=== PATIENT | female | born 1995 | race Caucasian/White ===

== ENCOUNTER 2018-07-30 10:45 | Inpatient (IN) | payer MEDICAID ==
[2018-07-30] MEDS ORDERED: OXYTOCIN 10 UNIT/ML 1 ML VIAL IM PRN (12:25)
[2018-07-30] MEDS ORDERED: METHYLERGONOVINE 0.2 MG/ML 1 ML AMP IM PRN (12:25)
[2018-07-30] MEDS ORDERED: TERBUTALINE 1 MG/ML VIAL SQ PRN (12:25)
[2018-07-30] MEDS ORDERED: LIDOCAINE 0.5% (PF) 5 MG/ML (50 ML SDV) SQ PRN (12:25)
[2018-07-30] MEDS ORDERED: CARBOPROST TROMETHAMINE 250 MCG/ML 1 ML AMP IM PRN (12:25)
[2018-07-30 12:32] VITALS: BMI 32.9
[2018-07-30] MEDS: OXYTOCIN 20 UNITS/1000 ML NS 1,000 ML IV SCH (12:36)
[2018-07-30] MEDS: LACTATED RINGERS 1,000 ML IV SCH ×2 (12:36→17:13)
--- NOTE | 2018-07-30 12:44 | P.HPOB ---
History of Present Illness H&P Date: 07/30/18 Chief Complaint: Spontaneous rupture of membranes, IUP at 39-4/7 weeks This is a 23-year-old 2 para 0010 at 39-4/7 weeks that presents to labor and delivery with complaints of spontaneous rupture of membranes last night at 2130. Patient states she was having irregular contractions and was unsure to come in. She called the office this morning and presented to labor and delivery positive amnio sure immediately. On initial physical exam she was 2 cm by the RN. Next para patient was receiving routine care by myself. Next On blood work showed a blood type of O+, rubella immune, RPR nonreactive, hepatitis B surface antigen negative, HIV negative, she did pass her 1 hour Glucola screen with a level of 70, group beta strep was negative on 07/07/2018. Review of Systems Constitutional: Denies chills, Denies fatigue, Denies fever Cardiovascular: Reports leg edema Respiratory: Denies cough, Denies dyspnea Gastrointestinal: Denies constipation, Denies diarrhea, Denies nausea, Denies vomiting Genitourinary: Reports Past Medical History Past Medical History: No Reported History History of Any Multi-Drug Resistant Organisms: None Reported Additional Past Surgical History / Comment(s): Jaw surgery 10 years ago for under bite. Past Anesthesia/Blood Transfusion Reactions: No Reported Reaction Past Psychological History: No Psychological Hx Reported Smoking Status: Never smoker Past Alcohol Use History: None Reported Past Drug Use History: None Reported - Past Family History Father Family Medical History: Diabetes Mellitus Medications and Allergies Home Medications Medication Instructions Recorded Confirmed Type No Known Home Medications 07/30/18 07/30/18 History Allergies Allergy/AdvReac Type Severity Reaction Status Date / Time No Known Allergies Allergy Verified 07/30/18 12:20 Exam Osteopathic Statement: *. No significant issues noted on an osteopathic structural exam other than those noted in the History and Physical/Consult. Vital Signs Temp Pulse Resp Pulse Ox 07/30/18 11:35 98.4 F 76 16 100 Intake and Output 07/29/18 07/30/18 07/30/18 22:59 06:59 14:59 Other: Weight 81.647 kg - OBG Physical Exam Abdomen: Gravid and appropriate for gestational age Vulva: both: normal Cervix: 2-3/80/-2 amniotomy performed and clear fluid was obtained suspect forebag rupture prior Anus/Rectum: normal perianal skin Assessment and Plan (1) Term Current Visit: Yes Status: Acute Code(s): Z34.80 - ENCOUNTER FOR SUPRVSN OF NORMAL , UNSP TRIMESTER SNOMED Code(s): 74513441 (2) SROM (spontaneous rupture of membranes) Current Visit: Yes Status: Acute Code(s): LHP5620 - SNOMED Code(s): 902750076 Plan: Will admit to labor and delivery for Pitocin augmentation of labor given length of time since loss of fluid last pm 2129.
[2018-07-30 13:18] LABS: Basophils % (A) 0 %; Eosinophils # (A) 0.1 k/uL (0-0.7); Eosinophils % (A) 1 %; HCT 38.4 % (34.0-46.0); HGB 12.6 gm/dL (11.4-16.0); Lymphocytes # (A) 1.7 k/uL (1.0-4.8); Lymphocytes % (A) 16 %; MCH 32.5 pg (25.0-35.0); MCHC 32.9 g/dL (31.0-37.0); MCV 98.8 fL (80.0-100.0); Mean Platelet Volume 7.9; Monocytes # (A) 0.6 k/uL (0-1.0); Monocytes % (A) 5 %; Neutrophils # (A) 8.1 k/uL (1.3-7.7); Neutrophils % (A) 76 %; Platelet Count 176 k/uL (150-450); RBC 3.88 m/uL (3.80-5.40); RDW 12.8 % (11.5-15.5); WBC 10.6 k/uL (3.8-10.6)
[2018-07-30] MEDS ORDERED: BUTORPHANOL 1 MG/ML 1 ML VIAL IV PRN (14:11)
[2018-07-30] MEDS ORDERED: fentaNYL (PF) 50 MCG/ML 5 ML AMP ONE (16:56)
[2018-07-30] MEDS ORDERED: SODIUM CHLORIDE 0.9% 100 ML BAG ONE (16:56)
[2018-07-30] MEDS ORDERED: ROPIVACAINE 5MG/ML 20ML VIAL ONE (16:56)
[2018-07-30] MEDS ORDERED: CITRIC ACID-SODIUM CITRATE 15 ML CUP PO ONE (17:56)
[2018-07-30] MEDS ORDERED: diphenhydrAMINE 50 MG/ML 1 ML VIAL ONE (18:06)
[2018-07-30] MEDS ORDERED: CHLOROPROCAINE 3% 30 MG/ML 20 ML VIAL ONE (18:06)
[2018-07-30] MEDS ORDERED: MORPHINE SULFATE (PF) 0.3 MG/0.3 ML SYR ONE (18:06)
[2018-07-30] MEDS ORDERED: ePHEDrine SULFATE/0.9% NACL/PF 50 MG/5 ML SYRINGE IV ONE (18:06)
[2018-07-30] MEDS ORDERED: NALBUPHINE 10 MG/ML VIAL (10ML MDV) ONE (18:06)
[2018-07-30] MEDS ORDERED: ceFAZolin 1,000 MG VIAL ONE (18:06)
[2018-07-30] MEDS ORDERED: ONDANSETRON 4 MG/2 ML VIAL ONE (18:06)
[2018-07-30] MEDS ORDERED: KETOROLAC 30 MG/ML 1 ML VIAL ONE (18:06)
[2018-07-30] MEDS ORDERED: DEXAMETHASONE SOD PHOS (MDV) 100 MG/10 ML VIAL ONE (18:06)
--- NOTE | 2018-07-30 18:54 | P.OP ---
Date of Procedure: 07/30/18 Preoperative Diagnosis: IUP at 39-4/7 weeks, nonreassuring heart tones, remote from delivery Postoperative Diagnosis: Same Procedure(s) Performed: Primary low transverse section Anesthesia: epidural Surgeon: Zoe Gallego Home Energy Inspector #1: Poly Chavez Estimated Blood Loss (ml): 400 IV fluids (ml): 1,000 Urine output (ml): 100 Pathology: other (Placenta) Condition: stable Disposition: observation Indications for Procedure: heart tones noted with decelerations down to the 80s for 4 minutes return to baseline given remote from delivery and spontaneous deceleration decision was made to proceed with primary low transverse section. Of note patient had made no cervical global climate change researcher the prior 6 hours despite regular contractions Operative Findings: Normal uterus tubes and ovaries, infant in occiput transverse presentation Description of Procedure: The patient was prepped and draped in the usual fashion after epidural anesthesia was found to be adequate. A Pfannenstiel incision was made and extended of the abdominal cavity without difficulty. The bladder peritoneum was elevated and incised and reflected distally. A 2 cm incision was made in the transverse plane of the lower uterine segment to enter the uterus at which time clear fluid was noted. The incision was extended in both directions using the bandage scissors. The head was encountered within the field and delivered up and through the incision where the nose and mouth were thoroughly suctioned. Remainder of the infant was delivered onto the surgical field where the cord was doubly clamped, cut, and the infant was passed for resuscitative measures with weight and Apgars as noted above. A segment of cord was then doubly clamped, cut, and set aside should cord gases become necessary. The placenta was delivered manually, intact, and was grossly normal with a grossly normal three-vessel cord. The uterus was exteriorized and the interior cavity of the uterus swept of any remaining placental and membranous fragments with a laparotomy sponge. The margins of the incision were grasped with allis clamps and the incision closed in 2 layers. First layer was a running locking layer of 0 vicryl from margin to margin followed by a second layer of imbricating 0 vicryl from margin to margin. Any small points of bleeding were then made hemostatic with the Bovie. Once hemostasis was achieved, the posterior cul-de- sac was suctioned with a guard and the uterine and ovarian findings are as noted above. The uterus was replaced within the abdominal cavity and the gutters swept of any remaining blood fluid or clot. The incision was again reexamined and hemostasis was noted to be excellent. Any small point of bleeding were made hemostatic with the Bovie. Once hemostasis was achieved the parietal peritoneum was loosely reapproximated. The layer of muscles were examined and made hemostatic with the Bovie. Attention was then turned to the fascia which was closed with 2 running stitches of 0 Vicryl proceeding from the lateral margins to the midpoint. The subcutaneous tissues were irrigated, made hemostatic with the Bovie. The skin was reapproximated with 4-0 vicryl. Estimated blood loss for the case was approximately 600 mL. All sponge instrument and needle counts are correct. There were no complications. The patient tolerated the procedure well and proceeded to the recovery room in stable condition. Both mother and are resting comfortably in recovery.
[2018-07-31] MEDS ORDERED: diphenhydrAMINE 25 MG CAP PO PRN (07:20)
[2018-07-31] MEDS ORDERED: HYDROcodone/APAP 5-325MG 1 EACH TAB PO PRN (07:20)
[2018-07-31] MEDS ORDERED: diphenhydrAMINE 50 MG/ML 1 ML VIAL IVP PRN ×2 (07:20)
[2018-07-31] MEDS ORDERED: ONDANSETRON 4 MG/2 ML VIAL IVP PRN (07:20)
[2018-07-31] MEDS ORDERED: METOCLOPRAMIDE 5 MG/ML 2 ML VIAL IVP PRN (07:20)
[2018-07-31] MEDS ORDERED: diphenhydrAMINE 50 MG CAP PO PRN (07:20)
[2018-07-31] MEDS ORDERED: NALOXONE 0.4 MG/ML 1 ML VIAL IV PRN (07:20)
[2018-07-31] MEDS ORDERED: ZOLPIDEM 5 MG TAB PO PRN (07:20)
[2018-07-31] MEDS ORDERED: ACETAMINOPHEN TAB 325 MG TAB PO PRN (07:20)
[2018-07-31] MEDS ORDERED: SIMETHICONE 80 MG CHEWABLE PO PRN (07:20)
[2018-07-31] MEDS: SENNOSIDES-DOCUSATE SODIUM 1 EACH TAB PO SCH ×2 (07:38→20:29)
[2018-07-31] MEDS ORDERED: ACETAMINOPHEN IV (For NPO) 1,000 MG in EMPTY BAG 1 BAG IVPB STA (07:51)
[2018-07-31 08:23] LABS: Basophils % (A) 0 %; Eosinophils % (A) 0 %; HGB 10.4 gm/dL (11.4-16.0); Lymphocytes # (A) 1.4 k/uL (1.0-4.8); Lymphocytes % (A) 10 %; MCH 32.7 pg (25.0-35.0); MCHC 33.6 g/dL (31.0-37.0); MCV 97.4 fL (80.0-100.0); Mean Platelet Volume 7.5; Monocytes # (A) 0.7 k/uL (0-1.0); Monocytes % (A) 5 %; Neutrophils # (A) 11.8 k/uL (1.3-7.7); Neutrophils % (A) 84 %; Platelet Count 170 k/uL (150-450); RBC 3.18 m/uL (3.80-5.40)
--- NOTE | 2018-07-31 09:25 | P.PNOBGPC ---
Subjective - Subjective Principal diagnosis: POD 1 LTCS NRFHTs Interval history: Patient is doing well on this postop day #1. She is ambulating and voiding without difficulty. She states her pain is well-controlled. She denies concerns. Patient reports: Reports appetite normal, Reports voiding normally, Reports pain well controlled, Reports ambulating normally [place]: doing well Objective - Vital Signs Latest vital signs: Vital Signs Temp Pulse Resp BP Pulse Ox 07/31/18 08:31 97.6 F 75 15 117/74 07/31/18 08:00 98 07/31/18 04:00 98.7 F 96 16 123/73 07/31/18 00:00 96.8 F L 78 16 129/69 100 07/30/18 21:00 82 16 140/81 100 07/30/18 20:30 71 16 134/87 100 07/30/18 20:00 71 16 132/84 100 07/30/18 19:45 74 16 129/83 100 07/30/18 19:30 74 16 126/76 99 07/30/18 19:15 71 16 129/75 99 07/30/18 19:00 96.8 F L 85 16 120/81 98 07/30/18 11:35 98.4 F 76 16 100 Intake and Output 07/30/18 07/31/18 07/31/18 22:59 06:59 14:59 Output Total 800 1400 Balance -800 -1400 Output: Urine 800 1400 Other: Voiding Method Indwelling Catheter # Voids 1 0 - Exam Lungs: bilateral: normal Extremities: Present: normal Abdomen: Present: normal appearance, soft Incision: Present: normal, dry, intact Uterus: Present: normal, firm - Labs Labs: Abnormal Lab Results - Last 24 Hours (Table) 07/30/18 07/31/18 Range/Units 12:59 07:37 WBC 14.0 H (3.8-10.6) k/uL RBC 3.18 L (3.80-5.40) m/uL Hgb 10.4 L (11.4-16.0) gm/dL Hct 31.0 L (34.0-46.0) % Neutrophils # 8.1 H 11.8 H (1.3-7.7) k/uL Assessment and Plan (1) Term Current Visit: Yes Status: Acute Code(s): Z34.80 - ENCOUNTER FOR SUPRVSN OF NORMAL , UNSP TRIMESTER SNOMED Code(s): 51457423 (2) SROM (spontaneous rupture of membranes) Current Visit: Yes Status: Acute Code(s): MJU5112 - SNOMED Code(s): 368664356 (3) S/P section Current Visit: Yes Status: Acute Code(s): Z98.891 - HISTORY OF UTERINE SCAR FROM PREVIOUS SURGERY SNOMED Code(s): 976249913 Plan: We'll continue routine postoperative care, and anticipate discharge home tomorrow
[2018-07-31] MEDS: IBUPROFEN 600 MG TAB PO PRN ×2 (14:03→19:50)
[2018-07-31] MEDS: LACTATED RINGERS 1,000 ML IV SCH ×3 (20:28→20:29)
[2018-07-31] MEDS: OXYTOCIN 20 UNITS/1000 ML NS 1,000 ML IV SCH (20:29)
[2018-07-31 23:44] VITALS: RESP 16
[2018-08-01] MEDS: IBUPROFEN 600 MG TAB PO PRN ×2 (07:38→15:20)
[2018-08-01] MEDS: SENNOSIDES-DOCUSATE SODIUM 1 EACH TAB PO SCH (07:38)
[2018-08-01 08:04] VITALS: TEMP 98.3
--- NOTE | 2018-08-01 08:13 | P.DS ---
Providers Date of admission: 07/30/18 11:30 Expected date of discharge: 08/01/18 Attending physician: Zoe Gallego Primary care physician: Stated None - Discharge Diagnosis(es) (1) Term Current Visit: Yes Status: Acute (2) SROM (spontaneous rupture of membranes) Current Visit: Yes Status: Acute (3) S/P section Current Visit: Yes Status: Acute Hospital Course: This is a 23-year-old 2 para 0010 at 39-4/7 weeks that presented to labor and delivery with complaints of spontaneous rupture of membranes at 2130 the night prior to admission. Patient was admitted to labor and delivery another membrane was palpated amniotomy was preformed and clear fluid was obtained. Patient progressed very slowly through labor despite Pitocin augmentation of labor. Patient was noted to be 3 cm for greater than 6 hours. Around 6 hour linda heart tones were noted to have a prolonged deceleration to the 80s/90s decision was made for a primary secondary to nonreassuring heart tones. was performed without difficulty for further details on the please see the operative report patient delivered a viable female at 1821, weight of 7 lbs. 13 oz., Apgars of 9 and 9 at one and 5 minutes respectively. patient's post operative course has been uneventful. She is ambulating and voiding without difficulty. She is tolerating a regular diet without nausea or vomiting. She denies pain and states she wishes to be discharged home today. Patient Condition at Discharge: Good Plan - Discharge Summary New Discharge Prescriptions: No Action No Known Home Medications Discharge Medication List No Known Home Medications 07/30/18 [History] Follow up Appointment(s)/Referral(s): Zoe Gallego DO [Doctor of Osteopathic Medicine] - 2 Weeks Patient Instructions/Handouts: (DC), (GEN) Discharge Disposition: HOME SELF-CARE
[2018-08-01 15:38] VITALS: BP 128/87; PULSE 92
== END 2018-08-01 21:00 | disposition home or self-care (01) | DRG 788 ==
LOC: FBPOP 10:45 → 4FBP 11:30
PROVIDERS: ADMIT Obstetrics & Gynecology Obstetrics; ATTEND Obstetrics & Gynecology Obstetrics
PROC: 10D00Z1 Extraction of Products of Conception, Low, Open Approach (ICD-10-PCS; principal; 2018-07-30 18:00)
DX: O76 Abnormality in fetal heart rate and rhythm complicating labor and delivery (principal); Z37.0 Single live birth; Z3A.39 39 weeks gestation of pregnancy; Z83.3 Family history of diabetes mellitus
CPT/HCPCS: 85025; 88307

== ENCOUNTER 2020-05-06 23:01 | Emergency (ER) | payer MEDICAID, OTHER ==
[2020-05-06 23:05] VITALS: PULSE 89; TEMP 99
[2020-05-06] MEDS ORDERED: LORATADINE-PSEUDOEPH 5-120 MG 1 EACH TAB.ER.12H PO STA (23:41)
[2020-05-06] MEDS ORDERED: IBUPROFEN 600 MG STARTER PACK 4 TAB BTL PO STA (23:41)
[2020-05-06] MEDS ORDERED: FLUTICASONE 50MCG/SPRAY NASAL 16GM EA NOSTRIL STA (23:41)
[2020-05-06] MEDS ORDERED: ACETAMINOPHEN TAB 500 MG TAB PO STA (23:41)
--- NOTE | 2020-05-06 23:50 | ED ---
URI HPI - General Chief Complaint: Headache Stated Complaint: ENT Time Seen by Provider: 05/06/20 23:10 Source: patient, RN notes reviewed, old records reviewed Mode of arrival: ambulatory Limitations: no limitations - History of Present Illness Initial Comments: This is a 25-year-old female DF for evaluation of brain was cough congestion occasional headache and bodyaches. No known sick contacts no known travel history is no medical history takes no medications. No fevers. 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 Patient states symptoms for a day and a half, the ER for evaluation. Patient has had family members test positive as well for coronavirus. She is concerned about this possibility MD Complaint: cough, sore throat, nasal congestion -: days(s) (2) Severity: moderate Severity scale (1-10): 6 Quality: aching (Bodyaches) Consistency: constant Improves With: OTC cold medicine Worsens With: nothing Associated Symptoms: myalgias, rhinorrhea, nasal congestion, sore throat, hoarseness Treatments Prior to Arrival: none - Related Data Previous Rx's Medication Instructions Recorded Cetirizine HCl/Pseudoephedrine 1 each PO BID #20 tab.er.12h 05/06/20 [Zyrtec-D Tablet] Allergies Allergy/AdvReac Type Severity Reaction Status Date / Time No Known Allergies Allergy Verified 05/06/20 23:05 Review of Systems ROS Statement: Those systems with pertinent positive or pertinent negative responses have been documented in the HPI. ROS Other: All systems not noted in ROS Statement are negative. Past Medical History Past Medical History: No Reported History History of Any Multi-Drug Resistant Organisms: None Reported Additional Past Surgical History / Comment(s): Jaw surgery 10 years ago for under bite. Past Anesthesia/Blood Transfusion Reactions: No Reported Reaction Past Psychological History: No Psychological Hx Reported Smoking Status: Never smoker Past Alcohol Use History: None Reported Past Drug Use History: None Reported - Past Family History Father Family Medical History: Diabetes Mellitus General Exam Limitations: no limitations General appearance: alert, in no apparent distress Head exam: Present: atraumatic, normocephalic, normal inspection Eye exam: Present: normal appearance, PERRL, EOMI. Absent: scleral icterus, conjunctival injection, periorbital swelling ENT exam: Present: other (Patient does have nasal polyps bilaterally) Neck exam: Present: normal inspection. Absent: tenderness, meningismus, lymphadenopathy Respiratory exam: Present: normal lung sounds bilaterally. Absent: respiratory distress, wheezes, rales, rhonchi, stridor Cardiovascular Exam: Present: regular rate, normal rhythm, normal heart sounds. Absent: systolic murmur, diastolic murmur, rubs, gallop, clicks GI/Abdominal exam: Present: soft, normal bowel sounds. Absent: distended, tenderness, guarding, rebound, rigid Extremities exam: Present: normal inspection, full ROM, normal capillary refill. Absent: tenderness, pedal edema, joint swelling, calf tenderness Back exam: Present: normal inspection Neurological exam: Present: alert, oriented X3, CN II-XII intact Psychiatric exam: Present: normal affect, normal mood Skin exam: Present: warm, dry, intact, normal color. Absent: rash Course Vital Signs 05/06/20 23:03 Temperature 99 F Pulse Rate 89 Respiratory 20 Rate Blood Pressure 121/85 O2 Sat by Pulse 99 Oximetry - Reevaluation(s) Reevaluation #1: 05/06/20 23:49 Medical record is reviewed Reevaluation #2: 05/06/20 23:49 Symptomatically patient is improved Medical Decision Making - Medical Decision Making 25 female assessed for coronavirus for follow-up on coronavirus results tomorrow. Patient given symptomatic relief for sinusitis and can be discharged - Radiology Data Radiology results: report reviewed (Chest x-rays negative for acute disease), image reviewed Disposition Clinical Impression: Upper respiratory infection, Sinusitis Disposition: HOME SELF-CARE Condition: Good Instructions (If sedation given, give patient instructions): Sinusitis (ED) Prescriptions: Cetirizine HCl/Pseudoephedrine [Zyrtec-D Tablet] 1 each PO BID #20 tab.er.12h Is patient prescribed a controlled substance at d/c from ED?: No Referrals: Patricia Ontiveros MD [Primary Care Provider] - 1-2 days
--- NOTE | 2020-05-07 00:26 | XR ---
EXAMINATION TYPE: XR chest 2V DATE OF EXAM: 05/07/2020 COMPARISON: NONE HISTORY: Cough TECHNIQUE: 2 views FINDINGS: Heart and mediastinum are normal. Lungs are clear. Diaphragm is normal. Bony thorax appears normal. IMPRESSION: Normal chest.
[2020-05-07 00:40] VITALS: BP 131/96; RESP 16
== END 2020-05-07 00:42 | disposition home or self-care (01) ==
LOC: EC 23:01
DX: J32.9 Chronic sinusitis, unspecified (principal); J06.9 Acute upper respiratory infection, unspecified; Z20.828 Contact with and (suspected) exposure to other viral communicable diseases
CPT/HCPCS: 99284; 71046; U0003

== ENCOUNTER 2020-09-04 05:40 | Emergency (ER) | payer OTHER ==
[2020-09-04 05:48] VITALS: RESP 16; TEMP 97.9
[2020-09-04] MEDS ORDERED: PROPARACAINE 0.5% OPHTH DROPS 15 ML BTL BOTH EYES STA (06:10)
[2020-09-04] MEDS ORDERED: FLUORESCEIN STRIPS 1 MG STRIP BOTH EYES STA (06:11)
[2020-09-04] MEDS ORDERED: CIPROFLOXACIN 0.3% OPHTH SOLN 5 ML BTL LEFT EYE STA (07:23)
--- NOTE | 2020-09-04 07:32 | ED ---
General Adult HPI - General Chief complaint: Eye Problems Stated complaint: Fb in eye Time Seen by Provider: 09/04/20 06:09 Source: patient, RN notes reviewed Mode of arrival: ambulatory Limitations: no limitations - History of Present Illness Initial comments: 25-year-old female presents to the emergency department for left eye pain. Patient reports that she has has had left eye pain since she took out her contacts yesterday around 4 PM. Patient states she feels like something is in her eye. States it is tearing a bit and irritated. Denies visual changes but states her vision feels blurry because her eye is irritated. States it is hard to hold her eye open.Patient has no other complaints at this time including shortness of breath, chest pain, abdominal pain, nausea or vomiting, headache, or visual changes. - Related Data Previous Rx's Medication Instructions Recorded Cetirizine HCl/Pseudoephedrine 1 each PO BID #20 tab.er.12h 05/06/20 [Zyrtec-D Tablet] Ciprofloxacin Ophth Soln [Cipro 1 drops LEFT EYE Q1HR 14 Days #1 09/04/20 0.3% Ophth Soln] bottle Allergies Allergy/AdvReac Type Severity Reaction Status Date / Time No Known Allergies Allergy Verified 09/04/20 05:48 Review of Systems ROS Statement: Those systems with pertinent positive or pertinent negative responses have been documented in the HPI. ROS Other: All systems not noted in ROS Statement are negative. Past Medical History Past Medical History: No Reported History History of Any Multi-Drug Resistant Organisms: None Reported Additional Past Surgical History / Comment(s): Jaw surgery 10 years ago for under bite. Past Anesthesia/Blood Transfusion Reactions: No Reported Reaction Past Psychological History: No Psychological Hx Reported Smoking Status: Never smoker Past Alcohol Use History: None Reported Past Drug Use History: None Reported - Past Family History Father Family Medical History: Diabetes Mellitus General Exam Limitations: no limitations General appearance: alert, in no apparent distress Head exam: Present: atraumatic, normocephalic, normal inspection Eye exam: Present: normal appearance, PERRL, EOMI, conjunctival injection (erythema), periorbital swelling (minimal around left eye). Absent: scleral icterus Expanded Eyelids: Normal Inspection: Right, Swelling: Left (minimal) Pupils: Regular, Round: Bilateral Sclera/Conjunctival: Normal Inspection: Bilateral Visual acuity (R) = 20/: 70 Visual acuity (L) = 20/: 50 With correction: No ENT exam: Present: normal exam, mucous membranes moist Neck exam: Present: normal inspection, full ROM. Absent: tenderness, meningismus, lymphadenopathy Respiratory exam: Present: normal lung sounds bilaterally. Absent: respiratory distress, wheezes, rales, rhonchi, stridor Cardiovascular Exam: Present: regular rate, normal rhythm, normal heart sounds. Absent: systolic murmur, diastolic murmur, rubs, gallop, clicks Course Vital Signs 09/04/20 09/04/20 05:44 07:40 Temperature 97.9 F Pulse Rate 71 74 Respiratory 16 16 Rate Blood Pressure 129/67 123/76 O2 Sat by Pulse 99 99 Oximetry Medical Decision Making - Medical Decision Making Patient was given proparacaine into the left eye and it is significant improvement in symptoms immediately. Fluorescein stain was used in conjunction with the Wood's lamp. Patient has a small suspected corneal ulcer at about 12:00 on the left eye. Patient was started on Cipro drops. She was educated not to wear contacts. She was educated to follow-up with Dr. Vernon. Did speak with Dr. Vernon around 10 AM this morning to update him on patient. He would like to see patient at 10 AM tomorrow. He agrees with doing one dropper hour for the antibiotic drops. Patient was updated on all this information and she will go to the office at 10 AM. Disposition Clinical Impression: Corneal ulcer Disposition: HOME SELF-CARE Condition: Good Instructions (If sedation given, give patient instructions): Corneal Ulcer (ED) Additional Instructions: Please use antibiotic drops as directed: 1 drop every hour on days one and 2 and then 1 drop every 4 hours on days 3 through 14. Follow-up with ophthalmology tomorrow morning. It is very important that you follow-up at that time. Prescriptions: Ciprofloxacin Ophth Soln [Cipro 0.3% Ophth Soln] 1 drops LEFT EYE Q1HR 14 Days #1 bottle Is patient prescribed a controlled substance at d/c from ED?: No Referrals: Patricia Ontiveros MD [Primary Care Provider] - 1-2 days Leonor Vernon MD [STAFF PHYSICIAN] - 1-2 days Time of Disposition: 07:28
[2020-09-04 07:41] VITALS: BP 123/76; PULSE 74
== END 2020-09-04 07:40 | disposition home or self-care (01) ==
LOC: EC 05:40
DX: H16.002 Unspecified corneal ulcer, left eye (principal)
CPT/HCPCS: 99283

== ENCOUNTER → 2020-09-27 | Outpatient (CLI) | payer OTHER | END | disposition home or self-care (01) | LOC: LABWHC1 15:00 | PROVIDERS: ATTEND Obstetrics & Gynecology | DX: N91.2 Amenorrhea, unspecified (principal) | CPT/HCPCS: 36415; 84702 ==

== ENCOUNTER → 2022-06-25 | Outpatient (CLI) | payer OTHER ==
--- NOTE | 2022-06-25 17:01 | US ---
EXAMINATION TYPE: Ultrasound OB <= 14 week fetus DATE OF EXAM: 06/25/2022 3:02 PM COMPARISON: NONE CLINICAL HISTORY: 27-year-old female Z36.89 CONFIRM DATES. EXAM PERFORMED: Transabdominal (TA) FINDINGS: EXAM MEASUREMENTS: GESTATIONAL AGE / DATING Physician Established: Not yet established Dates by LMP: LMP unknown Dates by First Scan: No previous this is first scan Dates by Current Scan for: (12 weeks/2 days) EDC: 01-05-23 MATERNAL ANATOMY Uterus: 15.4 x 6.1 x 9.8cm Right Ovary: 4.3 x 2.4 x 2.0cm. There is a 2.6 cm oval hypoechoic lesion within, probably a corpus viktor teum. Left Ovary: 2.6 x 1.3 x 1.3cm with normal follicular change. Post CDS / Adnexa: wnl Presence of free fluid: no GESTATION / SURVEY CRL: 5.8cm (12 weeks/2 days) Yolk Sac (normal less than 6mm): 3mm Heart Rate: 149 bpm Rhythm: Normal IUP: Viable IUP Age Appropriate Anatomy Cord Insertion: Visualized Limbs: Visualized Calvarium: Visualized Date of LMP: unknown Beta HcG (if available): Not available at this time IMPRESSION: 1. Single live intrauterine with gestational age of 12 weeks 2 days by crown-rump length. 2. A 2.6 cm right ovarian corpus luteum. 3. Complete survey recommended at 18-20 weeks.
== END | disposition home or self-care (01) ==
LOC: RADUSWWP 12:46
PROVIDERS: ATTEND Obstetrics & Gynecology
DX: Z36.89 Encounter for other specified antenatal screening (principal)
CPT/HCPCS: 76801

== ENCOUNTER 2023-01-09 05:57 | Inpatient (IN) | payer OTHER ==
[2023-01-09] MEDS ORDERED: METHYLERGONOVINE 0.2 MG/ML 1 ML AMP IM PRN (06:22)
[2023-01-09] MEDS ORDERED: TRANEXAMIC ACID IN NACL,ISO-OS 1,000 MG in EMPTY BAG 1 BAG IV PRN (06:22)
[2023-01-09] MEDS ORDERED: OXYTOCIN 10 UNIT/ML 1 ML VIAL IM PRN ×2 (06:22→21:12)
[2023-01-09] MEDS ORDERED: LIDOCAINE 0.5% (PF) 5 MG/ML (50 ML SDV) SQ PRN (06:22)
[2023-01-09] MEDS ORDERED: CARBOPROST TROMETHAMINE 250 MCG/ML 1 ML AMP IM PRN (06:22)
[2023-01-09] MEDS ORDERED: miSOPROStoL 200 MCG TAB PO PRN (06:22)
[2023-01-09] MEDS ORDERED: TERBUTALINE 1 MG/ML VIAL SQ PRN (06:22)
[2023-01-09] MEDS ORDERED: OXYTOCIN 30 UNITS/500 ML NS 30 UNIT in SALINE 1 500ML.BAG IV SCH ×2 (06:30→21:15)
[2023-01-09] MEDS: LACTATED RINGERS 1,000 ML IV SCH ×4 (06:33→18:33)
[2023-01-09 06:53] LABS: Basophils % (A) 0 %; Eosinophils # (A) 0.2 k/uL (0-0.7); Eosinophils % (A) 3 %; HCT 31.5 % (34.0-46.0); HGB 10.6 gm/dL (11.4-16.0); Lymphocytes # (A) 1.8 k/uL (1.0-4.8); Lymphocytes % (A) 20 %; MCH 30.5 pg (25.0-35.0); MCHC 33.5 g/dL (31.0-37.0); Mean Platelet Volume 8.5; Monocytes # (A) 0.6 k/uL (0-1.0); Monocytes % (A) 7 %; Neutrophils # (A) 5.9 k/uL (1.3-7.7); Neutrophils % (A) 67 %; Platelet Count 168 k/uL (150-450); RBC 3.46 m/uL (3.80-5.40); RDW 14.4 % (11.5-15.5); WBC 8.8 k/uL (3.8-10.6)
--- NOTE | 2023-01-09 08:04 | P.HPOB ---
History of Present Illness H&P Date: 01/09/23 Chief Complaint: Induction of labor 27-year-old presents at 41 weeks for TOLAC. Her cervix is 1 cm dilated, 60percent effaced, and -3 station. She is katelyn irregularly. heart tones 135 with moderate variability and reactive. Review of Systems All systems: negative Constitutional: Denies chills, Denies fever Eyes: denies blurred vision, denies pain Ears, nose, mouth and throat: Denies headache, Denies sore throat Cardiovascular: Denies chest pain, Denies shortness of breath Respiratory: Denies cough Gastrointestinal: Denies abdominal pain, Denies diarrhea, Denies nausea, Denies vomiting Genitourinary: Denies dysuria, Denies hematuria Musculoskeletal: Denies myalgias Integumentary: Denies pruritus, Denies rash Neurological: Denies numbness, Denies weakness Psychiatric: Denies anxiety, Denies depression Endocrine: Denies fatigue, Denies weight change Past Medical History Past Medical History: No Reported History History of Any Multi-Drug Resistant Organisms: None Reported Additional Past Surgical History / Comment(s): Jaw surgery 10 years ago for under bite. Past Anesthesia/Blood Transfusion Reactions: No Reported Reaction Past Psychological History: No Psychological Hx Reported Smoking Status: Never smoker Past Alcohol Use History: None Reported Past Drug Use History: None Reported - Past Family History Father Family Medical History: Diabetes Mellitus Medications and Allergies Home Medications Medication Instructions Recorded Confirmed Type Cetirizine HCl/Pseudoephedrine 1 each PO BID #20 tab.er.12h 05/06/20 Rx [Zyrtec-D Tablet] Ciprofloxacin Ophth Soln [Cipro 1 drops LEFT EYE Q1HR 14 Days #1 09/04/20 Rx 0.3% Ophth Soln] bottle Allergies Allergy/AdvReac Type Severity Reaction Status Date / Time No Known Allergies Allergy Verified 01/09/23 06:14 Exam Osteopathic Statement: *. No significant issues noted on an osteopathic structural exam other than those noted in the History and Physical/Consult. Vital Signs Temp Pulse Resp BP Pulse Ox 01/09/23 06:13 97.2 F L 108 H 16 123/80 98 Intake and Output 01/08/23 01/09/23 01/09/23 22:59 06:59 14:59 Other: Weight 74.843 kg Heart: Regular rate and rhythm Lungs: Clear to auscultation bilaterally Abdomen: Soft, nontender Extremities: Negative Homans sign Results Result Diagrams: 01/09/23 06:01 Abnormal Lab Results - Last 24 Hours (Table) 01/09/23 Range/Units 06:01 RBC 3.46 L (3.80-5.40) m/uL Hgb 10.6 L (11.4-16.0) gm/dL Hct 31.5 L (34.0-46.0) % Assessment and Plan (1) Previous section Current Visit: Yes Status: Acute Code(s): Z98.891 - HISTORY OF UTERINE SCAR FROM PREVIOUS SURGERY SNOMED Code(s): 814072791 (2) Encounter for induction of labor Current Visit: Yes Status: Acute Code(s): Z34.90 - ENCNTR FOR SUPRVSN OF NORMAL , UNSP, UNSP TRIMESTER SNOMED Code(s): 066711144 Plan: 1. induction of labor with amniotomy and pitocin. 2. discussed risks and benefits of TOLAC with patient and her several times including uterine rupture, hemorrhage and loss of life. 3. anticipate normal vaginal delivery after .
[2023-01-09] MEDS ORDERED: BUTORPHANOL 1 MG/ML 1 ML VIAL IV PRN (10:39)
[2023-01-09] MEDS ORDERED: SODIUM CHLORIDE 0.9% 100 ML BAG ONE (12:49)
[2023-01-09] MEDS ORDERED: ROPIVACAINE 5 MG/ML 20 ML AMPULE ONE (12:49)
[2023-01-09] MEDS ORDERED: fentaNYL (PF) 50 MCG/ML 5 ML AMP ONE (12:49)
[2023-01-09] MEDS ORDERED: CITRIC ACID-SODIUM CITRATE 15 ML CUP PO ONE (21:12)
[2023-01-09] MEDS ORDERED: ONDANSETRON 4 MG/2 ML VIAL ONE (21:45)
[2023-01-09] MEDS ORDERED: NALBUPHINE 10 MG/ML (10 ML MDV) ONE (21:45)
[2023-01-09] MEDS ORDERED: MORPHINE SULFATE (PF) 0.3 MG/0.3 ML SYR ONE (21:45)
[2023-01-09] MEDS ORDERED: KETOROLAC 15 MG/ML 1 ML VIAL ONE (21:45)
[2023-01-09] MEDS ORDERED: LIDOCAINE HCL/PF 20 MG/ML 10 ML AMP ONE (21:45)
[2023-01-09] MEDS ORDERED: ONDANSETRON 4 MG/2 ML VIAL IVP PRN (22:26)
[2023-01-09] MEDS ORDERED: NALOXONE 0.4 MG/ML 1 ML VIAL IV PRN (22:26)
[2023-01-09] MEDS ORDERED: ZOLPIDEM 5 MG TAB PO PRN (22:26)
[2023-01-09] MEDS ORDERED: LANOLIN CREAM 5 GM TUBE TOPICAL PRN (22:26)
[2023-01-09] MEDS ORDERED: diphenhydrAMINE 50 MG CAP PO PRN (22:26)
[2023-01-09] MEDS ORDERED: METOCLOPRAMIDE 5 MG/ML 2 ML VIAL IVP PRN (22:26)
[2023-01-09] MEDS ORDERED: diphenhydrAMINE 25 MG CAP PO PRN (22:26)
[2023-01-09] MEDS ORDERED: diphenhydrAMINE 50 MG/ML 1 ML VIAL IVP PRN ×2 (22:26)
--- NOTE | 2023-01-09 22:26 | P.OP ---
Date of Procedure: 01/09/23 Preoperative Diagnosis: 1. previous 2. Category 3 heart tones Postoperative Diagnosis: 1. Previous section 2. Category 3 heart tones Procedure(s) Performed: Repeat low transverse Anesthesia: epidural Surgeon: Ramya Lucero Director Of Primary #1: Zoe Gallego Estimated Blood Loss (ml): 460 IV fluids (ml): 1,000 Urine output (ml): 100 Pathology: none sent Condition: stable Disposition: floor Indications for Procedure: 27-year-old presented at 41 weeks gestation for induction of labor, trial of labor after . Her cervix was 1 same area dilated, 60% effaced, and - 2 station. She is not katelyn. heart tones are 135 with moderate variability and reactive. Amniotomy was performed and Pitocin augmentation was started. When the patient was uncomfortable she did get an epidural. Her cervix dilated to 3 cm, 80% effaced, and -2 station. She did not dilate further despite Pitocin, adequate contractions and position changes. heart tones started to be tachycardic in the 170s with minimal variability and repetitive late decelerations. We followed out and rhythm including initiation of corrective measures like turning off the Pitocin, IV fluids and oxygen. With persistence of repetitive late decelerations and tachycardia the patient consented fundal was held and the need for an expedited delivery was discussed with the patient. It is our clinical recommendation to proceed with delivery and after questions were answered the patient agreed to proceed with the recommended plan. Operative Findings: Viable , Apgars 7, 9, weight 8 lbs. 5 oz. Normal uterus, tubes, ovaries. Description of Procedure: Patient was taken to the operating room where epidural anesthesia was found be adequate. She was prepped and draped in normal sterile fashion in dorsal supine position with a leftward tilt. Pfannenstiel skin incision was made the scalpel and carried through to the underlying layer of fascia with the scalpel. Fascia was incised in midline and carried bilaterally with the Almonte scissors. The superior aspect of the fascial incision was grasped with Adebayo clamps elevated and the underlying rectus muscles dissected off with the Almonte's. Attention was then turned to inferior aspect of same incision which in a similar fashion was grasped tented up and the underlying rectus muscles dissected off with the Almonte's. The rectus muscles were the midline and the peritoneum was identified tented up and entered sharply with the scalpel. The incision was extended superiorly and inferiorly with good visualization of the bladder. The bladder blade was inserted and the vesicouterine peritoneum was incised the Metzenbaums then carried bilaterally and bladder flap created digitally. A low transverse incision was then made on the uterus with the scalpel. This was carried bilaterally and digital manner. 's head delivered atraumatically, nose and mouth bulb suctioned, cord clamped and cut, infant handed off to waiting nurses. Apgars 7,9, weight 8 lbs. 5 oz. Placenta delivered manually, intact with three-vessel cord. The uterus is exteriorized and cleared of all clots and debris. The uterine incision was closed with 0 Vicryl in a running locked fashion. Second layer of the same sutures used in imbricating fashion to obtain excellent hemostasis. Both ovaries and tubes appeared normal. The uterus was placed back into the abdomen. The muscles were reapproximated using 2-0 Vicryl in interrupted mattress stitch fashion. The fascia was reapproximated using 0 Vicryl in a running fashion. The subcutaneous tissues closed with 3-0 Vicryl running fashion. The skin was closed alma. Patient tolerated the procedure well, sponge and instrument counts were correct times 2 and she was taken to the recovery room in stable condition.
[2023-01-10] MEDS: ACETAMINOPHEN TAB 500 MG TAB PO SCH ×4 (01:12→19:56)
[2023-01-10] MEDS: LACTATED RINGERS 1,000 ML IV SCH ×2 (01:13→11:26)
[2023-01-10] MEDS: KETOROLAC 15 MG/ML 1 ML VIAL IVP SCH ×2 (05:31→14:42)
[2023-01-10] MEDS: IBUPROFEN 600 MG TAB PO SCH ×4 (05:32→21:57)
--- NOTE | 2023-01-10 06:02 | P.PN ---
Progress Note - Text Progress Note Date: 01/10/23 Postoperative day 1 status post section under epidural anesthesia and epidural Duramorph for postoperative analgesia.The patient is doing well, there is mild generalized skin itching. There are no other anesthesia related complications. The patient denies any paresthesia or weakness in the lower extremities. Patient denies any headache. Further management as per the patient primary team.
[2023-01-10 07:30] LABS: Basophils % (A) 0 %; Eosinophils # (A) 0.1 k/uL (0-0.7); Eosinophils % (A) 0 %; HCT 29.4 % (34.0-46.0); HGB 9.9 gm/dL (11.4-16.0); Lymphocytes % (A) 5 %; MCH 30.6 pg (25.0-35.0); MCHC 33.5 g/dL (31.0-37.0); MCV 91.3 fL (80.0-100.0); Mean Platelet Volume 8.4; Monocytes # (A) 0.7 k/uL (0-1.0); Monocytes % (A) 4 %; Neutrophils # (A) 17.3 k/uL (1.3-7.7); Neutrophils % (A) 89 %; Platelet Count 177 k/uL (150-450); RBC 3.22 m/uL (3.80-5.40); RDW 14.5 % (11.5-15.5); WBC 19.4 k/uL (3.8-10.6)
[2023-01-10] MEDS: SENNOSIDES-DOCUSATE SODIUM 1 EACH TAB PO SCH ×2 (08:14→19:56)
--- NOTE | 2023-01-10 09:10 | P.PNOBGPC ---
Subjective - Subjective Principal diagnosis: Status post repeat low transverse postop day 1 Interval history: Patient seen and examined. Denies nausea, vomiting, chest pain, shortness of breath or calf pain. Patient reports: Reports appetite normal, Reports voiding normally, Reports pain well controlled, Reports ambulating normally : doing well Objective - Vital Signs Latest vital signs: Vital Signs Temp Pulse Resp BP Pulse Ox 01/10/23 08:00 98.7 F 100 16 107/64 95 01/10/23 04:00 99.0 F 86 16 106/69 01/10/23 00:40 97.5 F L 102 H 16 109/66 97 01/10/23 00:10 98 16 116/57 97 01/09/23 23:40 88 16 116/56 97 01/09/23 23:25 98 16 127/65 93 L 01/09/23 23:10 92 16 114/58 96 01/09/23 22:55 93 16 122/60 93 L 01/09/23 22:40 100.3 F H 93 16 117/55 93 L Intake and Output 01/09/23 01/10/23 01/10/23 22:59 06:59 14:59 Intake Total 300 Output Total 560 1826 Balance -560 -1826 300 Intake: Oral 300 Output: Urine 100 1700 Estimated Blood Loss 460 Output, Quantitative 126 Blood Loss Other: Voiding Method Indwelling Catheter Indwelling Catheter # Voids 1 - Exam Lungs: bilateral: normal Chest: Normal S1, Normal S2 Extremities: Present: normal Abdomen: Present: normal appearance, soft. Absent: distention, tenderness Incision: Present: normal, dry, intact Uterus: Present: normal, firm - Labs Labs: Abnormal Lab Results - Last 24 Hours (Table) 01/10/23 Range/Units 06:43 WBC 19.4 H (3.8-10.6) k/uL RBC 3.22 L (3.80-5.40) m/uL Hgb 9.9 L (11.4-16.0) gm/dL Hct 29.4 L (34.0-46.0) % Neutrophils # 17.3 H (1.3-7.7) k/uL Assessment and Plan (1) Previous section Current Visit: Yes Status: Resolved Code(s): Z98.891 - HISTORY OF UTERINE SCAR FROM PREVIOUS SURGERY SNOMED Code(s): 806535673 (2) Encounter for induction of labor Current Visit: Yes Status: Resolved Code(s): Z34.90 - ENCNTR FOR SUPRVSN OF NORMAL , UNSP, UNSP TRIMESTER SNOMED Code(s): 042878457 (3) Status post repeat low transverse section Current Visit: Yes Status: Acute Code(s): Z98.891 - HISTORY OF UTERINE SCAR FROM PREVIOUS SURGERY SNOMED Code(s): 634968823 Plan: 1. Increase ambulation 2. By mouth pain medications 3. Regular diet
[2023-01-11] MEDS: ACETAMINOPHEN TAB 500 MG TAB PO SCH ×2 (01:40→07:42)
[2023-01-11] MEDS: IBUPROFEN 600 MG TAB PO SCH ×2 (04:37→10:33)
[2023-01-11 08:04] VITALS: BP 115/63; PULSE 85; RESP 18; TEMP 98
--- NOTE | 2023-01-11 09:40 | P.DS ---
Providers Date of admission: 01/09/23 05:57 Expected date of discharge: 01/11/23 Attending physician: Ramya Lucero Primary care physician: Stated None - Discharge Diagnosis(es) (1) Previous section Current Visit: Yes Status: Resolved (2) Encounter for induction of labor Current Visit: Yes Status: Resolved (3) Status post repeat low transverse section Current Visit: Yes Status: Acute Hospital Course: Patient presented for induction of labor. She underwent a repeat low transverse . Postoperative course is uneventful. Her incision is clean, dry, intact. She denies nausea, vomiting, chest pain, shortness of breath or calf pain. She is ambulating voiding without difficulty passing flatus and tolerating regular diet. Patient will be discharged home postoperative day #2 in stable condition to follow-up with me in one week. Plan - Discharge Summary New Discharge Prescriptions: New Ibuprofen [Motrin] 600 mg PO Q6H #30 tab oxyCODONE HCL [OxyIR] 5 mg PO Q4HR PRN #18 tab PRN Reason: Pain Scale 4 - 6 No Action Cetirizine HCl/Pseudoephedrine [Zyrtec-D Tablet] 1 each PO BID #20 tab.er.12h Ciprofloxacin Ophth Soln [Cipro 0.3% Ophth Soln] 1 drops LEFT EYE Q1HR 14 Days #1 bottle Discharge Medication List Cetirizine HCl/Pseudoephedrine [Zyrtec-D Tablet] 1 each PO BID #20 tab.er.12h 05/06/20 [Rx] Ciprofloxacin Ophth Soln [Cipro 0.3% Ophth Soln] 1 drops LEFT EYE Q1HR 14 Days #1 bottle 09/04/20 [Rx] Ibuprofen [Motrin] 600 mg PO Q6H #30 tab 01/11/23 [Rx] oxyCODONE HCL [OxyIR] 5 mg PO Q4HR PRN #18 tab 01/11/23 [Rx] Follow up Appointment(s)/Referral(s): Ramya Lucero DO [Doctor of Osteopathic Medicine] - 02/21/23 3:45 pm (Post Op Appointment 01-17-2023 at 11:30am) Discharge Disposition: HOME SELF-CARE
[2023-01-11] MEDS: SENNOSIDES-DOCUSATE SODIUM 1 EACH TAB PO SCH (10:35)
== END 2023-01-11 14:30 | disposition home or self-care (01) | DRG 540 ==
LOC: 4FBP 05:57
PROVIDERS: ADMIT Obstetrics & Gynecology; ATTEND Obstetrics & Gynecology
PROC: 10908ZC Drainage of Amniotic Fluid, Therapeutic from Products of Conception, Via Natural or Artificial Opening Endoscopic (ICD-10-PCS; 2023-01-09)
PROC: 3E033VJ Introduction of Other Hormone into Peripheral Vein, Percutaneous Approach (ICD-10-PCS; 2023-01-09)
PROC: 3E0R3BZ Introduction of Anesthetic Agent into Spinal Canal, Percutaneous Approach (ICD-10-PCS; 2023-01-09)
PROC: 10D00Z1 Extraction of Products of Conception, Low, Open Approach (ICD-10-PCS; principal; 2023-01-09 21:45)
DX: O48.0 Post-term pregnancy (principal); O34.211 Maternal care for low transverse scar from previous cesarean delivery; Z37.0 Single live birth; Z3A.41 41 weeks gestation of pregnancy; O76 Abnormality in fetal heart rate and rhythm complicating labor and delivery; Z28.310 Unvaccinated for COVID-19; Z79.899 Other long term (current) drug therapy
CPT/HCPCS: 85025; 86850; 86900; 86901

== ENCOUNTER 2023-06-11 10:05 | Emergency (ER) | payer OTHER ==
[2023-06-11 10:09] VITALS: BP 128/80; PULSE 89; RESP 18; TEMP 98
[2023-06-11 10:50] LABS: Basophils % (A) 0 %; Eosinophils # (A) 0.2 k/uL (0-0.7); Eosinophils % (A) 4 %; HCT 38.4 % (34.0-46.0); HGB 12.6 gm/dL (11.4-16.0); Lymphocytes # (A) 1.8 k/uL (1.0-4.8); Lymphocytes % (A) 35 %; MCH 29.3 pg (25.0-35.0); MCHC 32.9 g/dL (31.0-37.0); MCV 88.8 fL (80.0-100.0); Mean Platelet Volume 7.3; Monocytes # (A) 0.2 k/uL (0-1.0); Monocytes % (A) 4 %; Neutrophils # (A) 2.9 k/uL (1.3-7.7); Neutrophils % (A) 55 %; Platelet Count 239 k/uL (150-450); RBC 4.32 m/uL (3.80-5.40); WBC 5.3 k/uL (3.8-10.6)
[2023-06-11 11:17] LABS: ALT 13 U/L (4-34); AST 19 U/L (14-36); African American GFR (CKD) >90 (>60 ml/min/1.73 sqM); Albumin 4.1 g/dL (3.5-5.0); Alkaline Phosphatase 42 U/L (38-126); Anion Gap 7 mmol/L; Blood Urea Nitrogen 8 mg/dL (7-17); Calcium 9.2 mg/dL (8.4-10.2); Carbon Dioxide 24 mmol/L (22-30); Chloride 108 mmol/L (98-107); Glucose 75 mg/dL (74-99); Non-African American GFR(CKD) >90 (>60 ml/min/1.73 sqM); Potassium 4.1 mmol/L (3.5-5.1); Sodium 139 mmol/L (137-145); Total Bilirubin 0.6 mg/dL (0.2-1.3); Total Protein 6.5 g/dL (6.3-8.2)
--- NOTE | 2023-06-11 11:17 | ED ---
Female Urogenital HPI - General Chief complaint: Vaginal Bleeding Stated complaint: bleeding 10 weeks Time Seen by Provider: 06/11/23 10:06 Source: patient, RN notes reviewed Mode of arrival: ambulatory Limitations: no limitations - History of Present Illness Initial comments: This is a 28-year-old female who presents to the emergency department for vaginal bleeding in . Patient is , and states that last night she started to have light spotting. This persisted into today. States that yesterday she felt generally unwell and had some cramping. She feels somewhat better today, but continues to have the bleeding. She does report very small clots. She follows with Dr. Lucero, and was advised by their office to come to the emergency department for evaluation. Denies any fevers, chills, sore throat, cough, dyspnea, chest pain, palpitations, abdominal pain, nausea, vomiting, diarrhea, back pain, or headaches. MD Complaint: vaginal bleeding Onset/Timin -: days(s) - Related Data Previous Rx's Medication Instructions Recorded Cetirizine HCl/Pseudoephedrine 1 each PO BID #20 tab.er.12h 05/06/20 [Zyrtec-D Tablet] Ciprofloxacin Ophth Soln [Cipro 1 drops LEFT EYE Q1HR 14 Days #1 09/04/20 0.3% Ophth Soln] bottle Ibuprofen [Motrin] 600 mg PO Q6H #30 tab 01/11/23 oxyCODONE HCL [OxyIR] 5 mg PO Q4HR PRN #18 tab 01/11/23 Allergies Allergy/AdvReac Type Severity Reaction Status Date / Time No Known Allergies Allergy Verified 06/11/23 10:09 Review of Systems ROS Statement: Those systems with pertinent positive or pertinent negative responses have been documented in the HPI. ROS Other: All systems not noted in ROS Statement are negative. Past Medical History Past Medical History: No Reported History History of Any Multi-Drug Resistant Organisms: None Reported Additional Past Surgical History / Comment(s): Jaw surgery 10 years ago for under bite. Past Anesthesia/Blood Transfusion Reactions: No Reported Reaction Past Psychological History: No Psychological Hx Reported Smoking Status: Never smoker Past Alcohol Use History: None Reported Past Drug Use History: None Reported - Past Family History Father Family Medical History: Diabetes Mellitus General Exam Limitations: no limitations General appearance: alert, in no apparent distress Head exam: Present: atraumatic, normocephalic, normal inspection Respiratory exam: Present: normal lung sounds bilaterally. Absent: respiratory distress, wheezes, rales, rhonchi, stridor Cardiovascular Exam: Present: regular rate, normal rhythm, normal heart sounds. Absent: systolic murmur, diastolic murmur, rubs, gallop, clicks Neurological exam: Present: alert, oriented X3, CN II-XII intact Psychiatric exam: Present: normal affect, normal mood Skin exam: Present: warm, dry, intact, normal color. Absent: rash Course Vital Signs 06/11/23 10:06 Temperature 98 F Pulse Rate 89 Respiratory 18 Rate Blood Pressure 128/80 O2 Sat by Pulse 99 Oximetry Medical Decision Making - Medical Decision Making This is a 28-year-old female who presents to the emergency department for vaginal bleeding in . Was pt. sent in by a medical professional or institution? @ -Dr. Lucero's office Did you speak to anyone other than the patient for history? @ -No Did you review nursing and triage notes? @ -Yes, and I agree, it is accurate with regards to the patient's symptoms. Were old charts reviewed? @ -No Differential Diagnosis? @ -Differential Vaginal Bleeding: Spontaneous , threatened , molar , ectopic , incompetent cervix, placenta previa, uterine rupture, dysfunctional uterine bleeding, hemorrhage, uterine fibroids, malignancy, coagulopathy, PID, cervicitis, adenomyosis, vaginal trauma, this is not meant to be an all- inclusive list. EKG interpreted by me (3pts min.)? @ -Not obtained X-rays interpreted by me (1pt min.)? @ -Not obtained CT interpreted by me (1pt min.)? @ -Not obtained U/S interpreted by me (1pt. min.)? @ -Not interpreted by me What testing was considered but not performed? (CT, X-rays, U/S, labs)? Why? @ -None What meds were considered but not given? Why? @ -None Did you discuss the management of the patient with other professionals? @ -No Did you reconcile home meds? @ -No Was smoking cessation discussed for >3mins.? @ -No Was critical care preformed (if so, how long)? @ -No Were there social determinants of health that impacted care today? How? (Homelessness, low income, unemployed, alcoholism, drug addiction, transportation, low edu. Level, literacy, decrease access to med. care, correction, rehab)? @ -No Was there de-escalation of care discussed even if they declined? (Discuss DNR or withdrawal of care, Hospice)? @ -No What co-morbidities impacted this encounter? (DM, HTN, Smoking, COPD, CAD, Cancer, CVA, Hep., AIDS, mental health diagnosis, sleep apnea, morbid obesity)? @ - Was patient admitted / discharged? @ -Discharged. Lab work obtained and found to be nonactionable. Urinalysis negative for signs of infection. Beta hCG is 9132.9. She is Rh+ and no RhoGAM is indicated. Obstetrics ultrasound obtained revealing a small anechoic intrauterine cystic structure without evidence for a yolk sac or pole. This was felt to represent an early gestational sac, however ectopic and abnormal intrauterine cannot be excluded. Findings discussed with the patient. She was given a lab order to have her hCG repeated in 48 hours. She is otherwise instructed to follow-up with her TOOL MACHINE SETUP OPERATOR. Undiagnosed new problem with uncertain prognosis? @ -None Drug Therapy requiring intensive monitoring for toxicity (Heparin, Nitro, Insulin, Cardizem)? @ -None Were any procedures done? @ -None Diagnosis/symptom? @ -Threatened Acute, or Chronic, or Acute on Chronic? @ -Acute Uncomplicated (without systemic symptoms) or Complicated (systemic symptoms)? @ -Uncomplicated Side effects of treatment? @ -None Exacerbation, Progression, or Severe Exacerbation] @ -Not applicable Poses a threat to life or bodily function? @ -Not at this time, however if she were to develop substantial bleeding or pain, it could become a threatening issue. Return precautions reviewed in depth, the patient is instructed to return to the emergency department with any new, worsening, or concerning symptoms. Patient verbalized understanding. This case was discussed in detail with the attending ED physician, Dr. Mitchell. Presentation, findings, and treatment plan discussed in detail as well. - Lab Data Result diagrams: 06/11/23 10:43 06/11/23 10:43 Lab Results 06/11/23 06/11/23 06/11/23 Range/Units 10:43 10:43 10:43 WBC 5.3 (3.8-10.6) k/uL RBC 4.32 (3.80-5.40) m/uL Hgb 12.6 (11.4-16.0) gm/dL Hct 38.4 (34.0-46.0) % MCV 88.8 (80.0-100.0) fL MCH 29.3 (25.0-35.0) pg MCHC 32.9 (31.0-37.0) g/dL RDW 16.0 H (11.5-15.5) % Plt Count 239 (150-450) k/uL MPV 7.3 Neutrophils % 55 % Lymphocytes % 35 % Monocytes % 4 % Eosinophils % 4 % Basophils % 0 % Neutrophils # 2.9 (1.3-7.7) k/uL Lymphocytes # 1.8 (1.0-4.8) k/uL Monocytes # 0.2 (0-1.0) k/uL Eosinophils # 0.2 (0-0.7) k/uL Basophils # 0.0 (0-0.2) k/uL Sodium 139 (137-145) mmol/L Potassium 4.1 (3.5-5.1) mmol/L Chloride 108 H (98-107) mmol/L Carbon Dioxide 24 (22-30) mmol/L Anion Gap 7 mmol/L BUN 8 (7-17) mg/dL Creatinine 0.74 (0.52-1.04) mg/dL Est GFR (CKD-EPI)AfAm >90 (>60 ml/min/1.73 sqM) Est GFR (CKD-EPI)NonAf >90 (>60 ml/min/1.73 sqM) Glucose 75 (74-99) mg/dL Calcium 9.2 (8.4-10.2) mg/dL Total Bilirubin 0.6 (0.2-1.3) mg/dL AST 19 (14-36) U/L ALT 13 (4-34) U/L Alkaline Phosphatase 42 (38-126) U/L Total Protein 6.5 (6.3-8.2) g/dL Albumin 4.1 (3.5-5.0) g/dL HCG, Quant 9132.9 mIU/mL Urine Color Urine Appearance (Clear) Urine pH (5.0-8.0) Ur Specific Anton (1.001-1.035) Urine Protein (Negative) Urine Glucose (UA) (Negative) Urine Ketones (Negative) Urine Blood (Negative) Urine Nitrite (Negative) Urine Bilirubin (Negative) Urine Urobilinogen (<2.0) mg/dL Ur Leukocyte Esterase (Negative) Urine RBC (0-5) /hpf Urine WBC (0-5) /hpf Ur Squamous Epith Cells (0-4) /hpf Urine Mucus (None) /hpf Blood Type O Positive Blood Type Recheck O Pos Bld Type Recheck Status [facility] ONLY 06/11/23 Range/Units 12:16 WBC (3.8-10.6) k/uL RBC (3.80-5.40) m/uL Hgb (11.4-16.0) gm/dL Hct (34.0-46.0) % MCV (80.0-100.0) fL MCH (25.0-35.0) pg MCHC (31.0-37.0) g/dL RDW (11.5-15.5) % Plt Count (150-450) k/uL MPV Neutrophils % % Lymphocytes % % Monocytes % % Eosinophils % % Basophils % % Neutrophils # (1.3-7.7) k/uL Lymphocytes # (1.0-4.8) k/uL Monocytes # (0-1.0) k/uL Eosinophils # (0-0.7) k/uL Basophils # (0-0.2) k/uL Sodium (137-145) mmol/L Potassium (3.5-5.1) mmol/L Chloride (98-107) mmol/L Carbon Dioxide (22-30) mmol/L Anion Gap mmol/L BUN (7-17) mg/dL Creatinine (0.52-1.04) mg/dL Est GFR (CKD-EPI)AfAm (>60 ml/min/1.73 sqM) Est GFR (CKD-EPI)NonAf (>60 ml/min/1.73 sqM) Glucose (74-99) mg/dL Calcium (8.4-10.2) mg/dL Total Bilirubin (0.2-1.3) mg/dL AST (14-36) U/L ALT (4-34) U/L Alkaline Phosphatase (38-126) U/L Total Protein (6.3-8.2) g/dL Albumin (3.5-5.0) g/dL HCG, Quant mIU/mL Urine Color Colorless Urine Appearance Clear (Clear) Urine pH 6.0 (5.0-8.0) Ur Specific Anton 1.008 (1.001-1.035) Urine Protein Negative (Negative) Urine Glucose (UA) Negative (Negative) Urine Ketones Negative (Negative) Urine Blood Large H (Negative) Urine Nitrite Negative (Negative) Urine Bilirubin Negative (Negative) Urine Urobilinogen <2.0 (<2.0) mg/dL Ur Leukocyte Esterase Negative (Negative) Urine RBC <1 (0-5) /hpf Urine WBC 1 (0-5) /hpf Ur Squamous Epith Cells <1 (0-4) /hpf Urine Mucus Rare H (None) /hpf Blood Type Blood Type Recheck Bld Type Recheck Status - Radiology Data Radiology results: report reviewed, image reviewed Disposition Clinical Impression: Threatened Disposition: HOME SELF-CARE Instructions (If sedation given, give patient instructions): Threatened Miscarriage (ED) Additional Instructions: Return to the emergency department with any new, worsening, or concerning symptoms. Take the lab order to have your hCG count repeated in 48 hours. Follow up with your TOOL MACHINE SETUP OPERATOR. Is patient prescribed a controlled substance at d/c from ED?: No Referrals: Patricia Ontiveros MD [Primary Care Provider] - 1-2 days
[2023-06-11 11:28] LABS: HCG,Quantitative Serum 9132.9 mIU/mL
--- NOTE | 2023-06-11 11:39 | US ---
EXAMINATION TYPE: Transabdominal DATE OF EXAM: 06/11/2023 10:54 AM COMPARISON: 06/25/2022. CLINICAL INDICATION: Female, 28 years old with history of Vaginal bleeding in ; Pt states li ght vaginal bleeding with small clots x 1 day EXAM PERFORMED: Transabdominal (TA) EXAM MEASUREMENTS: GESTATIONAL AGE / DATING Physician Established: Not yet established Dates by LMP: (11 weeks/0 days) EDC: 12/31/2023 Dates by First Scan: No previous this is first scan Dates by Current Scan for: (7 weeks/0 days) EDC: 01/28/2024 MATERNAL ANATOMY Uterus: 9.1 x 5.8 x 7.0 cm Right Ovary: 3.6 x 3.2 x 2.9 cm Left Ovary: 2.2 x 1.6 x 2.1 cm Post CDS / Adnexa: wnl Presence of free fluid: No Presence of corpus luteal cyst: Right Ovary= 2.6 x 2.4 x 1.8 cm Presence of subchorionic bleed: No GESTATION / SURVEY CRL: Not visualized at this time MSD: 2.4 cm (7 weeks/0 days) Yolk Sac (normal less than 6mm): Not visualized at this time Date of LMP: 03/26/2023 Beta HcG (if available): Not available at this time Gestational sac visualized within uterus- yolk sac and pole not identified at this time IMPRESSION: Small anechoic intrauterine cystic structure without evidence for yolk sac or pole at this time . This is thought to represent an early gestational sac with a positive beta hCG, however ectopic pre gnancy and abnormal intrauterine cannot be ruled out based on this exam alone. Follow-up w ith pelvic ultrasound in 7-10 days and serial beta-hCG studies are recommended to en sure further dev elopment of the fetus.
[2023-06-11 12:25] LABS: Appearance,Urine Clear (Clear); Bilirubin,Urine Negative (Negative); Blood,Urine Large (Negative); Color,Urine Colorless; Glucose,Urine (UA) Negative (Negative); Ketones,Urine Negative (Negative); Leukocyte Esterase,Urine Negative (Negative); Mucus,Urine Rare /hpf; Nitrite,Urine Negative (Negative); Protein,Urine Negative (Negative); RBC,Urine <1 /hpf (0-5); Specific Gravity,Urine 1.008 (1.001-1.035); Squamous Epithelial Cell,Urine <1 /hpf (0-4); Urobilinogen,Urine <2.0 mg/dL (<2.0); WBC,Urine 1 /hpf (0-5)
== END 2023-06-11 12:18 | disposition home or self-care (01) ==
LOC: EC 10:05
DX: O20.0 Threatened abortion (principal); Z3A.10 10 weeks gestation of pregnancy
CPT/HCPCS: 36415; 76801; 80053; 81001; 84702; 85025; 86900; 86901; 99284

== ENCOUNTER 2023-06-11 22:58 | Emergency (ER) | payer OTHER ==
[2023-06-11 23:58] LABS: Basophils % (A) 0 %; Eosinophils # (A) 0.3 k/uL (0-0.7); Eosinophils % (A) 3 %; HCT 35.3 % (34.0-46.0); HGB 11.9 gm/dL (11.4-16.0); Lymphocytes # (A) 4.1 k/uL (1.0-4.8); Lymphocytes % (A) 46 %; MCH 29.2 pg (25.0-35.0); MCHC 33.7 g/dL (31.0-37.0); MCV 86.7 fL (80.0-100.0); Mean Platelet Volume 7.2; Monocytes # (A) 0.5 k/uL (0-1.0); Monocytes % (A) 5 %; Neutrophils # (A) 3.9 k/uL (1.3-7.7); Neutrophils % (A) 44 %; Platelet Count 270 k/uL (150-450); RBC 4.07 m/uL (3.80-5.40); RDW 15.7 % (11.5-15.5)
[2023-06-12 00:04] LABS: ALT 12 U/L (4-34); AST 20 U/L (14-36); African American GFR (CKD) >90 (>60 ml/min/1.73 sqM); Albumin 3.9 g/dL (3.5-5.0); Alkaline Phosphatase 50 U/L (38-126); Anion Gap 9 mmol/L; Blood Urea Nitrogen 12 mg/dL (7-17); Calcium 9.3 mg/dL (8.4-10.2); Carbon Dioxide 20 mmol/L (22-30); Chloride 107 mmol/L (98-107); Glucose 88 mg/dL (74-99); Non-African American GFR(CKD) >90 (>60 ml/min/1.73 sqM); Potassium 4.1 mmol/L (3.5-5.1); Sodium 136 mmol/L (137-145); Total Bilirubin 0.4 mg/dL (0.2-1.3); Total Protein 6.5 g/dL (6.3-8.2)
[2023-06-12 00:10] LABS: Partial Thromboplastin Time 21.9 sec (22.0-30.0); Prothrombin Time 10.2 sec (9.0-12.0)
--- NOTE | 2023-06-12 01:34 | ED ---
General Adult HPI - General Chief complaint: Vaginal Bleeding Stated complaint: Miscarage Time Seen by Provider: 06/12/23 00:32 Source: patient, RN notes reviewed Mode of arrival: ambulatory Limitations: no limitations - History of Present Illness Initial comments: 28-year-old female who is A2 presents to the emergency department with chief complaint of vaginal bleeding. Patient was seen and evaluated at this facility earlier today. She reports an increase in her symptoms including worsening vaginal bleeding, increased vaginal clots. He reports that her primary OCCUPATIONAL THERAPIST HOME BASED is Dr. Lucero. She denies passage of any products of conception at this time. She denies any dizziness, lightheaded, fatigue, shortness of breath. She reports that her last menstrual period dates is 03/26/2023. - Related Data Previous Rx's Medication Instructions Recorded Cetirizine HCl/Pseudoephedrine 1 each PO BID #20 tab.er.12h 05/06/20 [Zyrtec-D Tablet] Ciprofloxacin Ophth Soln [Cipro 1 drops LEFT EYE Q1HR 14 Days #1 09/04/20 0.3% Ophth Soln] bottle Ibuprofen [Motrin] 600 mg PO Q6H #30 tab 01/11/23 oxyCODONE HCL [OxyIR] 5 mg PO Q4HR PRN #18 tab 01/11/23 Allergies Allergy/AdvReac Type Severity Reaction Status Date / Time No Known Allergies Allergy Verified 06/11/23 23:06 Review of Systems ROS Statement: Those systems with pertinent positive or pertinent negative responses have been documented in the HPI. ROS Other: All systems not noted in ROS Statement are negative. Past Medical History Past Medical History: No Reported History History of Any Multi-Drug Resistant Organisms: None Reported Additional Past Surgical History / Comment(s): Jaw surgery 10 years ago for under bite. Past Anesthesia/Blood Transfusion Reactions: No Reported Reaction Past Psychological History: No Psychological Hx Reported Smoking Status: Never smoker Past Alcohol Use History: None Reported Past Drug Use History: None Reported - Past Family History Father Family Medical History: Diabetes Mellitus General Exam - General Exam Comments Initial Comments: General: Alert, in no acute distress Head: atraumatic normocephalic. Eyes PERRL, EOMI intact, mucous membranes moist Respiratory: Lungs clear to auscultation bilaterally Cardiovascular: Heart rate regular recommended Abdominal: Soft without guarding or rebound Extremities: Normal inspection with full range of motion and normal capillary refill Neuroogic: alert and oriented 3, CN II-XII intact, able to ambulate with steady gait Skin: warm dry and intact with normal color :external exam is without any rashes, lesions, erythema. Vaginal canal Cervical os is visualized and open. Vaginal vault with large clots that are easily cleared. There is no cervical motion tenderness for abnormal adnexal tenderness. Pelvic exam performed with Reva west RN present. Limitations: no limitations Course Vital Signs 06/11/23 06/12/23 23:04 02:42 Temperature 98.9 F 98 F Pulse Rate 99 90 Respiratory 18 19 Rate Blood Pressure 129/87 127/78 O2 Sat by Pulse 97 99 Oximetry - Reevaluation(s) Reevaluation #1: 06/12/23 01:[address] Hernández, OCCUPATIONAL THERAPIST HOME BASED on-call who believes patient will pass products of conception on her own is stable for discharge. Reevaluation #2: 06/12/23 01:45 should reevaluated and updated on OB on-call recommendation. Patient reports successful passage of products of conception. Medical Decision Making - Medical Decision Making Was pt. sent in by a medical professional or institution (, PA, SOLAR PROJECT COORDINATION SPECIALIST, urgent care, hospital, or snf...) When possible be specific @ -[No] Did you speak to anyone other than the patient for history (EMS, parent, family, police, friend...)? What history was obtained from this source @ -[No] Did you review nursing and triage notes (agree or disagree)? Why? @ -[I reviewed and agree with nursing and triage notes] Were old charts reviewed (outside hosp., previous admission, EMS record, old EKG, old radiological studies, urgent care reports/EKG's, snf records)? Report findings @ -Chart from earlier in the day from 06/11/2023 reviewed. US reveals threatened miscarriage vs. early IUP. Differential Diagnosis (chest pain, altered mental status, abdominal pain women, abdominal pain men, vaginal bleeding, weakness, fever, dyspnea, syncope, headache, dizziness, GI bleed, back pain, seizure, CVA, palpatations, mental health, musculoskeletal)? @ -[not applicable] EKG interpreted by me (3pts min.). @ -[As above] X-rays interpreted by me (1pt min.). @ -[None done] CT interpreted by me (1pt min.). @ -[None done] U/S interpreted by me (1pt. min.). @ -[None done] What testing was considered but not performed or refused? (CT, X-rays, U/S, labs)? Why? @ -[None] What meds were considered but not given or refused? Why? @ -[None] Did you discuss the management of the patient with other professionals (professionals i.e. , PA, SOLAR PROJECT COORDINATION SPECIALIST, lab, RT, psych nurse, certified social workers in health care, pottery striper, teacher, highway patrol officer, casework supervisor)? Give summary @ -Case discussed with Dr. Hernández, OCCUPATIONAL THERAPIST HOME BASED on-call who please the patient will pass products of conception without difficulty and is stable for discharge home. Was smoking cessation discussed for >3mins.? @ -[No] Was critical care preformed (if so, how long)? @ -[No] Were there social determinants of health that impacted care today? How? (Homel essness, low income, unemployed, alcoholism, drug addiction, transportation, low edu. Level, literacy, decrease access to med. care, nursing home, rehab)? @ -[No] Was there de-escalation of care discussed even if they declined (Discuss DNR or withdrawal of care, Hospice)? DNR status @ -[No] What co-morbidities impacted this encounter? (DM, HTN, Smoking, COPD, CAD, Cancer, CVA, ARF, Chemo, Hep., AIDS, mental health diagnosis, sleep apnea, morbid obesity)? @ -[None] Was patient admitted / discharged? Hospital course, mention meds given and route, prescriptions, significant lab abnormalities, going to OR and other pertinent info. @ -discharged. This is a pleasant 28-year-old female who presents the emergency department the chief complaint of vaginal bleeding in . Patient had a thorough history and physical exam performed while in the ED. exam reveals open cervical os with products of conception visible. Heavy blood clots easily removed from the vaginal vault. This does not appear to be hemorrhagic. Patient's hemoglobin is 11.9. Upon reevaluation patient able to pass large tissue consistent with products of conception. Case discussed with Dr. Hernández who believes the patient is stable enough for discharge. Return precautions were discussed at length including increased dizziness, lightheaded, fatigue to return to the emergency department. Patient discharged in stable condition. Case discussed with JENS Eid who agrees with POC. Undiagnosed new problem with uncertain prognosis? @ -[No] Drug Therapy requiring intensive monitoring for toxicity (Heparin, Nitro, Insulin, Cardizem)? @ -[No] Were any procedures done? @ -[No] Diagnosis/symptom? @ -Vaginal Bleeding vs. Threatened Miscarriage Acute, or Chronic, or Acute on Chronic? @ -Acute Uncomplicated (without systemic symptoms) or Complicated (systemic symptoms)? @ -Uncomplicated Side effects of treatment? @ -[No] Exacerbation, Progression, or Severe Exacerbation? @ -[No] Poses a threat to life or bodily function? How? (Chest pain, [place], [place], pneumonia, PE, COPD, DKA, ARF, appy, cholecystitis, CVA, Diverticulitis, Homicidal, Suicidal, threat to staff... and all critical care pts) @ -Low likelihood - Lab Data Result diagrams: 06/11/23 23:35 06/11/23 23:35 Lab Results 06/11/23 06/11/23 06/11/23 Range/Units 23:35 23:35 23:35 WBC 9.0 (3.8-10.6) k/uL RBC 4.07 (3.80-5.40) m/uL Hgb 11.9 (11.4-16.0) gm/dL Hct 35.3 (34.0-46.0) % MCV 86.7 (80.0-100.0) fL MCH 29.2 (25.0-35.0) pg MCHC 33.7 (31.0-37.0) g/dL RDW 15.7 H (11.5-15.5) % Plt Count 270 (150-450) k/uL MPV 7.2 Neutrophils % 44 % Lymphocytes % 46 % Monocytes % 5 % Eosinophils % 3 % Basophils % 0 % Neutrophils # 3.9 (1.3-7.7) k/uL Lymphocytes # 4.1 (1.0-4.8) k/uL Monocytes # 0.5 (0-1.0) k/uL Eosinophils # 0.3 (0-0.7) k/uL Basophils # 0.0 (0-0.2) k/uL PT 10.2 (9.0-12.0) sec INR 1.0 (<1.2) APTT 21.9 L (22.0-30.0) sec Sodium 136 L (137-145) mmol/L Potassium 4.1 (3.5-5.1) mmol/L Chloride 107 (98-107) mmol/L Carbon Dioxide 20 L (22-30) mmol/L Anion Gap 9 mmol/L BUN 12 (7-17) mg/dL Creatinine 0.84 (0.52-1.04) mg/dL Est GFR (CKD-EPI)AfAm >90 (>60 ml/min/1.73 sqM) Est GFR (CKD-EPI)NonAf >90 (>60 ml/min/1.73 sqM) Glucose 88 (74-99) mg/dL Calcium 9.3 (8.4-10.2) mg/dL Total Bilirubin 0.4 (0.2-1.3) mg/dL AST 20 (14-36) U/L ALT 12 (4-34) U/L Alkaline Phosphatase 50 (38-126) U/L Total Protein 6.5 (6.3-8.2) g/dL Albumin 3.9 (3.5-5.0) g/dL HCG, Quant mIU/mL 06/11/23 Range/Units 23:35 WBC (3.8-10.6) k/uL RBC (3.80-5.40) m/uL Hgb (11.4-16.0) gm/dL Hct (34.0-46.0) % MCV (80.0-100.0) fL MCH (25.0-35.0) pg MCHC (31.0-37.0) g/dL RDW (11.5-15.5) % Plt Count (150-450) k/uL MPV Neutrophils % % Lymphocytes % % Monocytes % % Eosinophils % % Basophils % % Neutrophils # (1.3-7.7) k/uL Lymphocytes # (1.0-4.8) k/uL Monocytes # (0-1.0) k/uL Eosinophils # (0-0.7) k/uL Basophils # (0-0.2) k/uL PT (9.0-12.0) sec INR (<1.2) APTT (22.0-30.0) sec Sodium (137-145) mmol/L Potassium (3.5-5.1) mmol/L Chloride (98-107) mmol/L Carbon Dioxide (22-30) mmol/L Anion Gap mmol/L BUN (7-17) mg/dL Creatinine (0.52-1.04) mg/dL Est GFR (CKD-EPI)AfAm (>60 ml/min/1.73 sqM) Est GFR (CKD-EPI)NonAf (>60 ml/min/1.73 sqM) Glucose (74-99) mg/dL Calcium (8.4-10.2) mg/dL Total Bilirubin (0.2-1.3) mg/dL AST (14-36) U/L ALT (4-34) U/L Alkaline Phosphatase (38-126) U/L Total Protein (6.3-8.2) g/dL Albumin (3.5-5.0) g/dL HCG, Quant 7396.2 mIU/mL Disposition Clinical Impression: Threatened miscarriage Disposition: HOME SELF-CARE Condition: Stable Instructions (If sedation given, give patient instructions): Miscarriage (ED), Threatened Miscarriage (ED) Additional Instructions: Please return to the nearest emergency department and dizziness, lightheaded, shortness of breath develop Is patient prescribed a controlled substance at d/c from ED?: No Referrals: Patricia Ontiveros MD [Primary Care Provider] - 1-2 days Ramya Lucero DO [Doctor of Osteopathic Medicine] - 1-2 days Time of Disposition: 01:34
[2023-06-12 02:43] VITALS: BP 127/78; PULSE 90; RESP 19; TEMP 98
== END 2023-06-12 02:43 | disposition home or self-care (01) ==
LOC: EC 22:58
DX: O20.0 Threatened abortion (principal); Z3A.00 Weeks of gestation of pregnancy not specified
CPT/HCPCS: 36415; 80053; 84702; 85025; 85610; 85730; 99284